=== PATIENT | female | born 1955 | race Caucasian/White ===

== ENCOUNTER 2020-10-11 01:38 | Emergency (ER) | payer MEDICAID ==
[~2020-10-11] VITALS: Ht 154.9 cm; Wt 74.8 kg
[~2020-10-11 01:38] MED LIST: ACETAMINOPHEN-1 EAC2 PO; ALAVERT10 MG PO; ALBUTEROL INH; AMOXICILLIN200 M1 PO; AMOXICILLIN875 MG PO; ANTIVERT25 MG PO; ASPIR 8181 M1 PO; ASPIR 8181 MG PO; ASPIRIN325 PO; ATENOLOL 100MG100 MG PO; ATENOLOL 50 MG50 M1 PO; ATENOLOL 50MG T50 M1 PO; ATIVAN0.5 M1 PO; ATIVAN0.5 MG PO; ATORVASTATIN CA40 MG PO; AUGMENTIN 500-1 EACH PO; B12INJ INTRADERM; BENTYL 20 MG TA20 M1 PO; CALCIUM 500 +1 EAC5 PO; CARAFATE 1 GM TA1 G1 PO; CEFDINIR300 MG PO; CEFUROXIME500 MG PO; CIPRO HC OTIC S10 ML OTIC; CLARITIN10 MG PO; COLACE 100 MG100 MG PO; CORTISPORIN OTI10 M2 OTIC; CYCLOBENZAPRINE; DIAZEPAM 5 MG5 M1 PO; DICLOFENAC SODI50 MG PO; DOXEPIN 10 MG C10 MG PO; DOXEPIN 25 MG C25 M1 PO; DOXEPIN 50MG CA50 MG PO; DOXYCYCLINE 10100 MG PO; FENOFIBRATE145 MG PO; FIBER500 MG PO; FIBER625 MG PO; FISH OIL 1,001000 M2 PO; FLAGYL500 MG PO; FLEXERIL PO; FLONASE 0.05%50 MCG NASAL; GLUCOPHAGE500 MG PO; GLUMETZA500 PO; GRALISE300 MG PO; GRALISE600 MG PO; HYDROCHLOROTHIA25 M1 PO; HYDROCHLOROTHIA25 M2 PO; HYDROCODON-ACE1 EAC7 PO; HYDROCODONE-AP1 EACH; IBUPROFEN 800800 M1 PO; IMDUR 60 MG TAB60 M1 PO; K-DUR 20 MEQ T20 MEQ PO; KEFLEX500 M1 PO; LC-445 GM TP; LEVAQUIN 500 M500 M2 PO; LEVAQUIN 750 M750 MG PO; LEVOTHYROXINE25 MCG PO; LEXAPRO 10 MG T10 M1 PO; LEXAPRO 10 MG T10 MG PO; LEXAPRO20 MG PO; LIDODERM; LIDODERM 5%1 PATCH TOP; LOPRESSOR25 PO; LORTAB 5-500 T1 EAC1 PO; MEDROLDOSEPACK PO; METFORMIN HCL500 M2 PO; METHOCARBAMOL750 MG PO; MEVACOR10 MG PO; MIRALAX17 GM PO; MUCINEX600 MG PO; MULTIVITAMINS PO; MULTIVITAMINS1 EAC7 PO; NASONEX17 GM NASAL; NEURONTIN600 MG PO; NITROGLYCERIN0.4 MG SUBLING; NORCO 5-325 TA1 EAC1 PO; NORCO 5-325 TA1 EACH PO; NORVASC10 MG PO; ONDANSETRON HCL4 M2 PO; ONDANSETRON ODT8 MG PO; OXYCODONE HCL 55 MG PO; OXYCODONE HCL10 MG; OXYCODONE HCL10 MG PO; PENICILLIN V P500 MG PO; PERCOCET 10-321 EACH PO; PERCOCET 5-3251 EACH PO; PERCOCET 7.5-31 EACH PO; PLAVIX 75 MG TA75 M1 PO; POTASSIUM20 PO; PRAVASTATIN SOD10 MG PO; PREDNISONE 20 M20 MG PO; PREDNISONE50 MG PO; PROAIR HFA8.5 GM INH; PROTONIX40 M1 PO; PROVENTIL HFA6.7 G1 INH; ROBAXIN 750 MG750 M1 PO; SENNA-DOCUSATE1 EAC1 PO; SENNA8.6 MG PO; SOMA250 MG PO; TESSALON PERLE100 MG PO; THEREMS-M1 EACH PO; TRICOR; TRICOR145 MG; TRICOR145 MG PO; VALIUM5 MG PO; VENTOLIN HFA 1818 GM INH; VICODIN; VITAMIN D2000 UNIT PO; VITAMIN D3400 UNIT/5 PO; VITAMIN E400 UNI6 PO; VITAMINC500 PO; ZETIA10 MG PO; ZOCOR 20 MG TAB20 M1 PO; ZOFRAN ODT4 MG DISSOLVE; ZOFRAN ODT4 MG PO; ZUPLENZ8 MG PO
[2020-10-11] MEDS ORDERED: APAP W/CODEINE1 TA2 PO (02:16)
[2020-10-11 02:54] LABS: ABSOLUTE EOSINOPHILS 0.1 thou/uL (0.0-0.7); ABSOLUTE LYMPHOCYTES 3.6 thou/uL (0.8-5.3); ABSOLUTE MONOCYTES 0.5 thou/uL (0.0-1.2); ABSOLUTE NEUTROPHILS 2.7 thou/uL (1.6-8.1); BASOPHILS 0.7 %; EOSINOPHILS 1.4 %; HEMATOCRIT 39.5 % (37.0-47.0); HEMOGLOBIN 13.3 gm/dL (12.0-15.0); LYMPHOCYTES 51.9 %; MCH 30.1 pg (26.0-34.0); MCHC 33.7 g/dL (28.0-37.0); MCV 89.5 fL (80.0-100.0); MONOCYTES 7.8 %; MPV 6.8 fl. (7.2-11.1); NUCLEATED RBCS 0 /100WBC; PLATELET COUNT* 445 thou/uL (150-400); POLYS 38.2 %; RBC 4.41 mil/uL (4.20-5.00); RDW-CV 13.8 % (10.5-14.5)
[2020-10-11 02:57] LABS: CALCIUM 9.1 mg/dL (8.5-10.1); CREATININE 1.2 mg/dL (0.6-1.3); POTASSIUM 3.6 mmol/L (3.5-5.1)
[2020-10-11 03:01] LABS: ALBUMIN 4.1 g/dL (3.4-5.0); MAGNESIUM 1.7 mg/dL (1.8-2.4); TOTAL BILIRUBIN 0.4 mg/dL (<0.1-1.0)
[2020-10-11 04:22] LABS: URINE BILIRUBIN NEGATIVE (Negative); URINE BLOOD TRACE (Negative); URINE CLARITY CLEAR; URINE COLOR YELLOW; URINE GLUCOSE-RANDOM NEGATIVE (Negative); URINE KETONES NEGATIVE (Negative); URINE LEUKOCYTES-REFLEX 1+ (Negative); URINE NITRITE-REFLEX NEGATIVE (Negative); URINE PROTEIN NEGATIVE (Negative); URINE SPECIFIC GRAVITY <= 1.005 (1.005-1.030); URINE UROBILINOGEN 0.2 E.U./dl (0.2-1.0)
[2020-10-11 04:29] VITALS: BP 167/74
[2020-10-11 05:12] LABS: CASTS None Seen /LPF (None Seen); SQUAMOUS 4-10 Moderate /LPF (0-3)
[2020-10-11 05:13] LABS: BACTERIA-REFLEX 1-9 Few /HPF (None Seen); CRYSTALS None Seen /LPF (None Seen); URINE RBC 0-2 Rare /HPF (0-2); URINE WBC-REFLEX 6-15 Few /HPF (0-5)
--- NOTE | 2020-10-11 13:26 | EKG ---
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: : 1955 Requested By: Dorota Man Order Number: [id number] MD: Ozzy Coffman Measurements Intervals [place] Rate: 62 P: 32 [place]: 175 QRS: -57 QRSD: 106 T: 6 QT: 480 QTc: 488 Interpretive Statements Sinus rhythm Incomplete RBBB and LAFB Consider RVH w/ secondary repol abnormality Borderline prolonged QT interval Compared to ECG 05/07/2019 14:28:24 No significant changes Electronically Signed On 10-11-2020 13:26:33 [employer]ILL [employer] by Ozzy Coffman [email or web address] <ELECTRONICALLY SIGNED> By: Ozzy Coffman MD, FACC 10/11/20 1326 5 5 Ozzy Coffman MD, FAC /EPI
== END 2020-10-11 04:31 | disposition home or self-care (01) ==
LOC: M.ERS 01:38
PROVIDERS: Personal Emergency Response Attendant
DX: R10.13 Epigastric pain (principal); R10.12 Left upper quadrant pain; G89.29 Other chronic pain; M79.605 Pain in left leg; M79.604 Pain in right leg; M79.7 Fibromyalgia; I10 Essential (primary) hypertension; Z86.73 Personal history of transient ischemic attack (TIA), and cerebral infarction without residual deficits; E03.9 Hypothyroidism, unspecified; Z90.710 Acquired absence of both cervix and uterus; Z90.49 Acquired absence of other specified parts of digestive tract; Z90.721 Acquired absence of ovaries, unilateral; Z88.8 Allergy status to other drugs, medicaments and biological substances; Z88.1 Allergy status to other antibiotic agents

== ENCOUNTER 2021-06-22 14:38 | Emergency (ER) | payer OTHER, MEDICAID ==
[~2021-06-22] VITALS: Ht 157.5 cm; Wt 75.8 kg
[~2021-06-22 14:38] MED LIST changes: +APAP W/CODEINE1 TA2 PO
[2021-06-22] MEDS ORDERED: NORVASC10 MG PO (14:55)
[2021-06-22 15:04] LABS: ABSOLUTE BASOPHILS 0.1 thou/uL (0.0-0.2); ABSOLUTE EOSINOPHILS 0.2 thou/uL (0.0-0.7); ABSOLUTE LYMPHOCYTES 3.5 thou/uL (0.8-5.3); ABSOLUTE MONOCYTES 0.5 thou/uL (0.0-1.2); ABSOLUTE NEUTROPHILS 3.9 thou/uL (1.6-8.1); BASOPHILS 0.7 %; EOSINOPHILS 1.9 %; HEMATOCRIT 39.3 % (37.0-47.0); HEMOGLOBIN 13.5 gm/dL (12.0-15.0); LYMPHOCYTES 43.2 %; MCH 31.1 pg (26.0-34.0); MCHC 34.3 g/dL (28.0-37.0); MCV 90.7 fL (80.0-100.0); MONOCYTES 6.7 %; MPV 6.5 fl. (7.2-11.1); NUCLEATED RBCS 0 /100WBC; PLATELET COUNT* 537 thou/uL (150-400); POLYS 47.5 %; RBC 4.34 mil/uL (4.20-5.00); RDW-CV 13.7 % (10.5-14.5); WBC 8.2 thou/uL (4.0-11.0)
[2021-06-22 15:08] LABS: CALCIUM 8.8 mg/dL (8.5-10.1); CREATININE 1.3 mg/dL (0.6-1.3); POTASSIUM 4.3 mmol/L (3.5-5.1)
[2021-06-22 15:13] LABS: ALBUMIN 3.9 g/dL (3.4-5.0); TOTAL BILIRUBIN 0.2 mg/dL (<0.1-1.0); TOTAL PROTEIN 7.9 g/dL (6.4-8.2)
[2021-06-22 15:24] LABS: URINE BILIRUBIN NEGATIVE (Negative); URINE BLOOD NEGATIVE (Negative); URINE CLARITY CLEAR; URINE COLOR YELLOW; URINE GLUCOSE-RANDOM NEGATIVE (Negative); URINE KETONES NEGATIVE (Negative); URINE LEUKOCYTES 1+ (Negative); URINE NITRITE NEGATIVE (Negative); URINE PROTEIN NEGATIVE (Negative); URINE UROBILINOGEN 0.2 E.U./dl (0.2-1.0)
[2021-06-22 15:32] LABS: AMP/METHAMP Negative (Negative); BARBITURATES Negative (Negative); BENZODIAZEPINES Negative (Negative); COCAINE Negative (Negative); METHADONE Negative (Negative); OPIATES Negative (Negative); PCP Negative (Negative); THC POSITIVE (Negative)
[2021-06-22 15:33] LABS: BACTERIA 1-9 Few /HPF (None Seen); CASTS None Seen /LPF (None Seen); CRYSTALS None Seen /LPF (None Seen); SQUAMOUS 0-3 Few /LPF (0-3); URINE RBC 0-2 Rare /HPF (0-2); URINE WBC 0-5 Rare /HPF (0-5)
--- NOTE | 2021-06-22 16:35 | EKG ---
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1955 Requested By: Carmencita Wyman Order Number: [id number] MD: Ozzy Coffman Measurements Intervals [place] Rate: 56 P: 52 [place]: 179 QRS: -59 QRSD: 109 T: 22 QT: 486 QTc: 470 Interpretive Statements Sinus rhythm Incomplete RBBB and LAFB Anteroseptal infarct, age indeterminate, possible Baseline wander in lead(s) V2 Compared to ECG 10/11/2020 02:36:55 Myocardial infarct finding now present Electronically Signed On 06-22-2021 16:35:43 CDT by Ozzy Coffman [email or web address] <ELECTRONICALLY SIGNED> By: Ozzy Coffman MD, FACC 06/22/21 1635 1541 1541 Ozzy Coffman MD, FAC /EPI
[2021-06-22] MEDS ORDERED: NORCO5 PO ×2 (17:00→17:04)
[2021-06-22 17:31] VITALS: BP 107/63
== END 2021-06-22 17:31 | disposition home or self-care (01) ==
LOC: M.ERS 14:38
PROVIDERS: Physician Assistant
DX: R10.12 Left upper quadrant pain (principal); G89.29 Other chronic pain; I10 Essential (primary) hypertension; E03.9 Hypothyroidism, unspecified; M79.7 Fibromyalgia; G50.0 Trigeminal neuralgia; Z88.1 Allergy status to other antibiotic agents; Z88.8 Allergy status to other drugs, medicaments and biological substances; Z79.82 Long term (current) use of aspirin; Z79.2 Long term (current) use of antibiotics; Z79.899 Other long term (current) drug therapy; Z90.710 Acquired absence of both cervix and uterus

== ENCOUNTER 2021-07-04 23:54 | Inpatient (IN) | payer OTHER, MEDICAID ==
[~2021-07-04] VITALS: Ht 157.5 cm; Wt 75.3 kg
--- NOTE | ~2021-07-04 | PROC ---
[address] [address] PROCEDURE REPORT Name: YASEMIN JOHNSON Room: [address] IN M.R.#: [id number] Admission: 07/05/21 Attend Phys: Crystal Polo MD Discharge: 07/07/21 Date of : 57 Report #: [id number] THIS REPORT FOR: cc: Mariela Mccall MD, Karla L. MD [facility],Medical Records Staff ~ For GI report, please see the Provation report in Perceptive 7 content. By: [id number] Records Staff [facility] /BREN
[~2021-07-04 23:54] MED LIST changes: +NORCO5 PO
[2021-07-04 23:57] VITALS: BP 108/60
[2021-07-05 01:31] LABS: ABSOLUTE BASOPHILS 0.1 thou/uL (0.0-0.2); ABSOLUTE EOSINOPHILS 0.1 thou/uL (0.0-0.7); ABSOLUTE LYMPHOCYTES 2.5 thou/uL (0.8-5.3); ABSOLUTE MONOCYTES 0.6 thou/uL (0.0-1.2); ABSOLUTE NEUTROPHILS 11.2 thou/uL (1.6-8.1); ALBUMIN 4.7 g/dL (3.4-5.0); BASOPHILS 0.6 %; CALCIUM 8.9 mg/dL (8.5-10.1); CREATININE 1.7 mg/dL (0.6-1.3); EOSINOPHILS 0.4 %; HEMATOCRIT 40.4 % (37.0-47.0); HEMOGLOBIN 13.7 gm/dL (12.0-15.0); LYMPHOCYTES 17.5 %; MAGNESIUM 1.3 mg/dL (1.8-2.4); MONOCYTES 4.1 %; MPV 6.8 fl. (7.2-11.1); NUCLEATED RBCS 0 /100WBC; PLATELET COUNT* 469 thou/uL (150-400); POLYS 77.4 %; POTASSIUM 3.4 mmol/L (3.5-5.1); RBC 4.43 mil/uL (4.20-5.00); RDW-CV 13.6 % (10.5-14.5); TOTAL BILIRUBIN 0.3 mg/dL (<0.1-1.0); TOTAL PROTEIN 8.5 g/dL (6.4-8.2); WBC 14.4 thou/uL (4.0-11.0)
[2021-07-05 01:33] LABS: PROTIME 10.8 Seconds (9.20-11.50)
[2021-07-05 05:08] LABS: URINE BILIRUBIN NEGATIVE (Negative); URINE BLOOD NEGATIVE (Negative); URINE CLARITY CLEAR; URINE COLOR YELLOW; URINE GLUCOSE-RANDOM NEGATIVE (Negative); URINE KETONES NEGATIVE (Negative); URINE LEUKOCYTES-REFLEX TRACE (Negative); URINE NITRITE-REFLEX NEGATIVE (Negative); URINE PROTEIN NEGATIVE (Negative); URINE SPECIFIC GRAVITY >= 1.030 (1.005-1.030); URINE UROBILINOGEN 0.2 E.U./dl (0.2-1.0)
[2021-07-05 05:26] LABS: CRYSTALS None Seen /LPF (None Seen); HYALINE CASTS 4-10 Moderate /LPF (None Seen); MUCUS 4-6 Moderate strn/LPF (None Seen); SQUAMOUS 0-3 Few /LPF (0-3); URINE RBC 0-2 Rare /HPF (0-2); URINE WBC-REFLEX 6-15 Few /HPF (0-5)
[2021-07-05 08:00] VITALS: BP 96/47
--- NOTE | 2021-07-05 09:44 | EKG ---
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: MR : 1955 Requested By: Loan Michael Order Number: [id number] MD: Corey Smith Measurements Intervals [place] Rate: 74 P: 27 [place]: 172 QRS: -55 QRSD: 111 T: 95 QT: 430 QTc: 477 Interpretive Statements Sinus rhythm Multiform ventricular premature complexes Incomplete RBBB and LAFB RSR' in V1 or V2, right VCD or RVH Probable left ventricular hypertrophy Baseline wander in lead(s) V3,V5 Compared to ECG 06/22/2021 15:41:15 Ventricular premature complex(es) now present Myocardial infarct finding no longer present Electronically Signed On 07-05-2021 9:44:22 CDT by Corey Smith [email or web address] <ELECTRONICALLY SIGNED> By: Corey Smith MD, [facility] 07/05/21 0944 0000 0000 Corey Smith MD, [facility] /EPI
[2021-07-05 15:55] VITALS: BP 91/55
--- NOTE | 2021-07-05 18:08 | CON ---
[address] [address] CONSULTATION Name: YASEMIN JOHNSON Room: [address] IN M.R.#: [id number] Admission: 07/05/21 Attend Phys: Crystal Polo MD Discharge: Date of : 57 Report #: [id number] THIS REPORT FOR: cc: Mariela Mccall MD, Karla L. MD Vardakis, Gregory DO ~ cc: Mariela Mccall MD DATE OF CONSULTATION: 07/05/2021 Please note at the time of this dictation, the patient was seen and physically examined by myself. REASON FOR CONSULTATION: Abdominal pain, nausea, and diarrhea. HISTORY OF PRESENT ILLNESS: This is a 66-year-old female who has been having issues with upper abdominal discomfort along with nausea and diarrhea that has been ongoing since November. The patient was recently seen in our office by Doe Jameson NP, for her abdominal pain and she was scheduled for an EGD and a colonoscopy in August with Dr. Naqvi; however, the patient states she could not wait any longer. The patient states that her nausea continues and does have some issues with acid reflux. She continues to take her omeprazole on a regular basis. She has noticed more ongoing nausea, but no vomiting. She denies taken any ibuprofen at the present time and only takes Tylenol. The patient states she was diagnosed with autoimmune pancreatitis back in November by Dr. Haas and she has been taking Creon 3 tablets with meals and 1 with snacks since that time. She has also, since her diagnosis, has been having issues with diarrhea that she states has been intermittent and sometimes it maybe once a day and sometimes up to 3 and it is very, very loose. She did have a colonoscopy back [address] [facility], but we have not received those records yet in our office that she was noted to have a polyp at that time. The patient also has a history of C. diff in the past, but she denies any recent antibiotic use at this time. ALLERGIES: COMPAZINE, ERYTHROMYCIN, NEOMYCIN, POLYMYCIN, AMITRIPTYLINE, PROMETHAZINE, TRAMADOL, SIMVASTATIN. MEDICATIONS FROM HOME: Amlodipine, Lexapro, isosorbide mononitrate, Tenormin, aspirin, and levothyroxine. She is also taking [place] p.r.n. as well as taking some Protonix daily. PAST MEDICAL HISTORY: Hypertension; fibromyalgia; hypothyroidism; anxiety; history of C. diff x 2; aortic stenosis; trigeminal neuralgia; history of CAD, PA in 2018; history of right lung nodules, followed by Pulmonary; history of a CVA, [place] [id number] CONSULTATION Name: YASEMIN JOHNSON Room: [address] IN M.R.#: [id number] Admission: 07/05/21 Attend Phys: Crystal Polo MD Discharge: Date of : 57 Report #: [id number] PAST SURGICAL HISTORY: She has got history of stent placement, 6 lumbar surgeries, cholecystectomy, appendectomy, microvascular decompression of her trigeminal nerve bladder suspensions x 3, right ankle surgery, hysterectomy with oophorectomy, discectomy, and vaginal wall detachment. FAMILY HISTORY: Colon cancer in maternal grandmother. SOCIAL HISTORY: Denies any alcohol, tobacco, or any illegal drug use. REVIEW OF SYSTEMS: Twelve-point review of systems is essentially negative except what is mentioned in the HPI. PHYSICAL EXAMINATION: VITAL SIGNS: Pulse 75, respirations are 12. BP is 108/60. HEART: Regular rate and rhythm with a murmur noted. LUNGS: Clear. ABDOMEN: Soft, positive bowel sounds in all four quadrants with tenderness noted in the left upper quadrant. LABORATORY DATA: Hemoglobin 13.7, white count is 14.4, and platelets is 469. BUN is 20, creatinine 1.7. LFTs are normal. Lipase is 121. IMAGING DATA: CT of the abdomen and pelvis shows fluid-filled small and large bowels with no bowel inflammation noted, some diverticulosis, status post cholecystectomy. IMPRESSION: 1. Nausea. 2. Abdominal pain, upper 3. Diarrhea. 4. Leukocytosis. 5. History of autoimmune pancreatitis. 6. Family history of colon cancer in maternal grandmother and personal history of colon polyps. PLAN: 1. EGD tomorrow to evaluate her nausea. 2. Stool Clostridium difficile PCR, ovum and parasite, rotavirus. 3. Continue her Flagyl. 4. Further recommendations to be made after Dr. German sees the patient later today. [address] [place] [address] CONSULTATION Name: YASEMIN JOHNSON Room: [address] IN M.R.#: [id number] Admission: 07/05/21 Attend Phys: Crystal Polo MD Discharge: Date of : 57 Report #: [id number] Thank you for allowing us to participate in this patient's care. Please do not hesitate to call with any questions regarding this consult. <ELECTRONICALLY SIGNED> By: Tito German DO 07/05/21 1808 0941 [id number] German DO /nt
--- NOTE | 2021-07-05 18:49 | NUR ---
PATIENT HAS REMAINED A&OX4, PLEASANT AND COOPERATIVE WITH CARES THIS SHIFT. PATIENT HAS C/O ABDOMINAL PAIN, REQUIRING PRN PAIN MEDICATION FREQUENTLY. FLUIDS/MEDICATIONS ADMINISTERED ORDERED. CALL LIGHT AND FREQUENTLY USED ITEMS WITHIN REACH.
[2021-07-05 19:50] VITALS: BP 130/59
--- NOTE | 2021-07-06 04:55 | NUR ---
PT A&O X 4. VSS ON RA. MEDS GIVEN ORDERED. PAIN MANAGED WITH FENTANYL. NPO SINCE MIDNIGHT FOR EGD. UP TO BR WITH SBA. CALL LIGHT WITHIN REACH. WILL CONTINUE TO MONITOR.
[2021-07-06 05:13] LABS: HEMATOCRIT 33.9 % (37.0-47.0); MCH 30.7 pg (26.0-34.0); MCHC 33.7 g/dL (28.0-37.0); MCV 91.2 fL (80.0-100.0); MPV 6.7 fl. (7.2-11.1); NUCLEATED RBCS 0 /100WBC; RBC 3.72 mil/uL (4.20-5.00); RDW-CV 13.8 % (10.5-14.5); WBC 7.2 thou/uL (4.0-11.0)
[2021-07-06 05:19] LABS: CALCIUM 7.8 mg/dL (8.5-10.1); CREATININE 1.1 mg/dL (0.6-1.3)
[2021-07-06 05:27] LABS: HEMOGLOBIN 11.4 gm/dL (12.0-15.0); PLATELET COUNT* 385 thou/uL (150-400)
[2021-07-06 06:44] LABS: ABSOLUTE EOSINOPHILS 0.2 thou/uL (0.0-0.7); ABSOLUTE LYMPHOCYTES 3.2 thou/uL (0.8-5.3); ABSOLUTE MONOCYTES 0.6 thou/uL (0.0-1.2); ABSOLUTE NEUTROPHILS 3.2 thou/uL (1.6-8.1); BASOPHILS 0.6 %; EOSINOPHILS 2.9 %; LYMPHOCYTES 44.1 %; POLYS 44.4 %
--- NOTE | 2021-07-06 07:18 | NUR ---
Mental Status upon admission A&O X3 Living Arrangements: APARTMENT Lives with: ALONE Support system: Name Phone number Relations [facility] MATTEO JOHNSON SON LIVES IN [facility] [phone] Can patient return to prior living arrangements? YES Activities of daily living: Independent Assistive device: WALKER, CRUTCHES AND CANE HARDLY USES Prior resource use: [facility] Notes: PCP DR MADDY JORDAN NO
[2021-07-06 08:15] VITALS: BP 144/62
--- NOTE | 2021-07-06 09:50 | NUR ---
Nutrition: Pt admitted with abd pain, rectal bleeding, N/V/D. Consult for "loss of appetite." Pt hasn't eaten x1 day d/t abd pain. NPO for EGD today. Will await results. Wt: 166#. Albumin 4.7. No nutrition interventions at this time. Hopeful for diet order and tolerance in timely manner. Will follow POC. Assessed at mild risk. F/u 07/11/21.
--- NOTE | 2021-07-06 13:12 | NUR ---
Anticipate dc in a few days. GI following for colitis.
--- NOTE | 2021-07-06 18:19 | NUR ---
PATIENT HAS REMAINED A&OX4, PLEASANT AND COOPERATIVE WITH CARES THIS SHIFT. EGD COMPLETED THIS AFTERNOON AND DIET ORDERED. SO FAR, PATIENT TOLERATING DINNER. MEDCICATIONS ADMINISTERED ORDERED. PATIENT NOW OUT OF ISOLATION D/T NEGATIVE C-DIFF RESULT. CALL LIGHT AND FREQUENTLY USED ITEMS WITHIN REACH.
[2021-07-06 19:45] VITALS: BP 142/56
--- NOTE | 2021-07-07 05:29 | NUR ---
PT A&O X 4. VSS ON RA. NEW IV INSERTED. PAIN MANAGED WITH FENTANYL. UP TO BR WITH SBA. HAD BM. PT SLEPT OFF AND ON. CALL LIGHT WITHIN REACH. WILL CONTINUE TO MONITOR.
[2021-07-07 06:25] VITALS: BP 136/62
[2021-07-07 08:16] VITALS: BP 135/55
[2021-07-07] MEDS ORDERED: AUGMENTIN 875-1 EACH PO (09:00)
[2021-07-07] MEDS ORDERED: HYDROCODON-ACE1 EAC7 PO (09:00)
[2021-07-07 09:28] VITALS: BP 135/55
[2021-07-07 09:41] LABS: HEMATOCRIT 37.4 % (37.0-47.0); HEMOGLOBIN 12.7 gm/dL (12.0-15.0); MCH 30.7 pg (26.0-34.0); MCHC 33.9 g/dL (28.0-37.0); MCV 90.3 fL (80.0-100.0); MPV 6.6 fl. (7.2-11.1); RBC 4.14 mil/uL (4.20-5.00); RDW-CV 13.5 % (10.5-14.5); WBC 7.7 thou/uL (4.0-11.0)
--- NOTE | 2021-07-07 11:33 | NUR ---
PT GIVEN DISCHARGE INFORMATION, CARE NOTES, AND PRESCRITIONS. IV REMOVED. PT BELONGINGS GATHERED. PT LEFT VIA WHEELCHAIR WITH NURSING STAFF TO HOME.
--- NOTE | 2021-07-10 18:06 | PATH ---
[address] [address] PATHOLOGY RPT PROCEDURE Name: YASEMIN MIGUEL Room: [address] IN M.R.#: [id number] Admission: 07/05/21 Date of : 57 Discharge: 07/07/21 Report #: [id number] Path Case #: [id number] [facility] Accession Number: [id number] . 01 Material submitted: . small bowel - SMALL BOWEL BIOPSY CHRONIC DIARRHEA . 01 Clinical history: . EGD IN OR COLITIS . 02 Diagnosis: Small bowel biopsy: - Benign small intestinal mucosa with mild nonspecific active inflammation, negative for granulomas, viral inclusions, significant intraepithelial lymphocytosis, villous atrophy and dysplasia/adenomatous change. (GENTRY:kannan; 07/10/2021) MBMichael 07/10/2021 1557 Local . 02 Electronically signed: . Manish Johnson MD, Pathologist NPI- [id number] . 01 Gross description: . The specimen is received in formalin, labeled "Yasemin Miguel, small bowel biopsy". Received are three segments of pale cai tissue ranging in size from 0.3-0.4 cm in maximum dimensions. The specimen is submitted entirely in cassette A1. (CAA; 07/07/2021) QA/QA 07/10/2021 1556 Local . 02 Pathologist provided ICD-10: K52.9 . 02 CPT . 297970 Specimen Comment: A courtesy copy of this report has been sent to [phone] Specimen Comment: [phone], Specimen Comment: Report sent to , DR PRETTY / DR NEAL Performed at: [address], [place] [id number] MD Aakash Lenz MD Phone: [phone] Performed at: [address] [id number] [place] [address] PATHOLOGY RPT PROCEDURE Name: YASEMIN MIGUEL Room: [address] IN M.R.#: [id number] Admission: 07/05/21 Date of : 57 Discharge: 07/07/21 Report #: [id number] Path Case #: [id number] MD Manish Johnson MD Phone: [phone]
== END 2021-07-07 11:34 | disposition home or self-care (01) | DRG 371 ==
LOC: M.ERS 23:54 → M.3W 07-05 04:49 → M.TBA-ER 07-05 04:49 → M.3W 07-05 09:40
PROVIDERS: Emergency Medicine; Internal Medicine Gastroenterology; Nurse Practitioner Adult Health; ADMIT Family Medicine; ATTEND Family Medicine
PROC: 0DB98ZX Excision of Duodenum, Via Natural or Artificial Opening Endoscopic, Diagnostic (ICD-10-PCS; principal; 2021-07-06)
DX: A04.9 Bacterial intestinal infection, unspecified (principal); N17.0 Acute kidney failure with tubular necrosis; Z20.822 Contact with and (suspected) exposure to COVID-19; I10 Essential (primary) hypertension; E03.9 Hypothyroidism, unspecified; E86.0 Dehydration; F12.90 Cannabis use, unspecified, uncomplicated; D72.829 Elevated white blood cell count, unspecified; F41.9 Anxiety disorder, unspecified; I25.10 Atherosclerotic heart disease of native coronary artery without angina pectoris; E66.9 Obesity, unspecified; I35.0 Nonrheumatic aortic (valve) stenosis; M54.5 Low back pain; Z86.73 Personal history of transient ischemic attack (TIA), and cerebral infarction without residual deficits; Z90.710 Acquired absence of both cervix and uterus; Z90.721 Acquired absence of ovaries, unilateral; Z95.5 Presence of coronary angioplasty implant and graft; Z90.49 Acquired absence of other specified parts of digestive tract; Z88.1 Allergy status to other antibiotic agents; Z88.8 Allergy status to other drugs, medicaments and biological substances; Z80.0 Family history of malignant neoplasm of digestive organs; Z86.010 Personal history of colon polyps; Z68.30 Body mass index [BMI] 30.0-30.9, adult; Z79.899 Other long term (current) drug therapy